=== PATIENT | male | born 1960 | race Caucasian/White ===

== ENCOUNTER 2020-12-08 12:08 | Emergency (ER) | payer BC, SELFPAY ==
[2020-12-08 12:09] VITALS: BP 146/103; PULSE 92; RESP 20; TEMP 36.6; O2SAT 97; BMI 46.4
--- NOTE | 2020-12-08 12:27 | EKG12_ITS ---
Test Reason : CHEST OTHR Blood Pressure : / mmHG Vent. Rate : 077 BPM Atrial Rate : 077 BPM P-R Int : 164 ms QRS Dur : 072 ms QT Int : 376 ms P-R-T Axes : 053 023 054 degrees QTc Int : 425 ms Normal sinus rhythm Nonspecific ST abnormality Abnormal ECG Confirmed by PILAR LOZADA, CAR ([id number]), newspaper photo editor CHAITANYA CARNES ([id number]) on 12/11/2020 9:49:09 AM Referred By: MARLON Confirmed By:AYESHA QUEZADA MD
--- NOTE | 2020-12-08 12:27 | CT_ITS ---
STUDY: CTA CHEST REASON FOR EXAM: Male, 60 years old. PE. Chest pain. Covid positive. RADIATION DOSAGE (If Supplied By Facility): CTDIvol = ( 31.58 ) mGy, DLP = ( 730.71 ) mGycm TECHNIQUE: The examination was performed with the intravenous administration of IV 100mL Isovue-370. Post-processing of the angiographic images was performed, with multiplanar reformation and 3D reconstruction. Individualized dose optimization techniques were used for this CT. COMPARISON: None. FINDINGS: There are multiple bilateral intraluminal filling defects in branches of the right and left upper lobe pulmonary arteries. Smaller luminal filling defects are also seen in the lower lobe pulmonary arterial branches in keeping with pulmonary emboli. Normal thoracic aorta and visualized great vessels. There is no demonstrated aortic dissection. Normal heart and pericardium. Normal mediastinum. Normal hilar regions. Normal visualized trachea and bronchi. The lungs are well expanded. Normal pulmonary parenchyma. Normal pleura. There is evidence of a 5.6 on the right 3 cm lipoma in the right axillary region extending into the rib space in the right upper hemithorax. There are degenerative changes of thoracic spine. Small hiatal hernia. CT/CTA Chest W/WO Contrast IMPRESSION: Multiple bilateral pulmonary emboli as described. Incidental note is made of a 5.9 cm x 3 cm lipoma in the medial aspect of the right axilla with extension into the region of the ribs. Electronically Signed: Donovan Marie MD at 14:15 EDT , Service support ,
[2020-12-08 13:12] LABS: Absolute Lymphocyte Count 2.13 X10^3/uL (0.83-4.51); Absolute Neutrophil Count 3.9 X10^3/uL (2.0-7.7); Basophil# 0.04 X10^3/uL; Basophil% 0.6 % (0-1); Eosinophil# 0.17 X10^3/uL; Eosinophils% 2.5 % (0-5); Hematocrit 52.5 % (40-54); Hemoglobin 18.1 g/dL (13.0-16.5); Lymphocyte # 2.13 X10^3/ul (0.83-4.51); Mean Corp Hgb Conc 34.5 g/dL (32-36); Mean Corpuscular Hgb 30.6 pg (27.0-32.0); Mean Corpuscular Volume 88.8 fL (80-94); Mean Platelet Vol. 11.3 fl (6.2-12.0); Monocyte# 0.65 X10^3/uL; Monocyte% 9.4 % (0-10); NRBC Flagged by Analyzer 0 % (0-5); Neutrophil # 3.87 X10^3/uL (2.7-7.7); Neutrophil % 56.2 % (47-70); Platelet Count 157 K/mm3 (150-450); RBC Distribution Width CV 12.1 % (11.6-14.6); RBC Distribution Width SD 39.8 fl (35.1-43.9); Red Blood Count 5.91 M/mm3 (4.6-6.2); White Blood Count 6.9 K/mm3 (4.4-11.0)
[2020-12-08] MEDS: 0.9% Normal Saline 1,000 ML 150 ML IV (13:17)
[2020-12-08 13:30] LABS: Anion Gap 6 (5-15); BUN 24 mg/dL (7-18); BUN/Creat Ratio 17.1 RATIO (10-20); Calcium,Total 9.4 mg/dL (8.5-10.1); Chloride 105 mmol/L (98-107); EST Glomerular Filtration Rate 55 mL/min (>60); Est Glom Filt Rate - Afr Amer 66 mL/min (>60); Estimated Creatinine Clearance 60.82 ml/min; Glucose 118 mg/dL (74-106); Potassium 3.6 mmol/L (3.5-5.1); Sodium Level 138 mmol/L (136-145)
[2020-12-08 13:41] VITALS: BP 145/101; PULSE 78; RESP 16; O2SAT 96
[2020-12-08 14:40] VITALS: BP 140/91; PULSE 78; RESP 20; O2SAT 97; O2SAT 98
[2020-12-08] MEDS: APIXABAN 5 MG TABLET 10 MG PO (14:59)
[2020-12-08] MEDS: Acetaminophen 500 MG Tablet 1000 MG PO (14:59)
[2020-12-08 15:01] VITALS: BP 130/79; PULSE 87; RESP 18; O2SAT 97
--- NOTE | 2020-12-08 15:22 | ED.VISSUMM ---
- ER Visit Summary Date of Service: 12/08/20 Chief Complaint: Chest pain History of Present Illness: The patient is a [address] Chan Baugh. Patient reports has a cough that began 8 days ago is productive yellow sputum without blood. Reports he tested positive for Covid 1 week ago. He has a left-sided chest pain that began 3 days ago. It is a sharp pain 6 out of 10 at worst and 2 out of 10 currently. Is worsened by breathing and coughing. Is relieved by nothing. Does report that he has been short of breath and diaphoretic at times. Physical Examination: Vitals: Stable. Afebrile. General: Well-nourished and well-developed. Head: Normocephalic atraumatic. Neck: Supple, no lymphadenopathy. No JVD. Nontender. Cardiovascular: Regular rate and rhythm. No murmurs. Respiratory: No respiratory distress. Clear to auscultation bilaterally. Abdominal: Soft, nontender, nondistended, normal bowel sounds. No guarding, rebound, or peritoneal signs. Back: Nontender. Extremities: Nontender, no edema. Skin: Normal color, no rash. Neurologic: Alert and oriented ?3. Cranial nerves II through XII are intact. Normal strength and sensation. Psych: Normal affect. Test Results: EKG is sinus at [address] changes. No old EKG for comparison. Troponin is less than 0.015. Chem-7 shows a BUN of 24, creatinine 1.4, glucose 118. CBC shows a hemoglobin of 18.1. Clinical Impression(s) from Imaging Studies Chest CTA 12/08/20 12:27 IMPRESSION: Multiple bilateral pulmonary emboli as described. Incidental note is made of a 5.9 cm x 3 cm lipoma in the medial aspect of the right axilla with extension into the region of the ribs. Electronically Signed: Donovan Marie MD at 14:15 EDT , Service support , Emergency Department Course and Treatment: Patient was initially written for a dose of morphine and Zofran IV. He refused this and was given Tylenol p.o. He was also given Eliquis p.o. Ambulatory pulse ox is 96% on room air. The patient feels well and would like to go home. His PE severity index is 71 making him class II. Treatment Plan: Patient will be discharged with Eliquis. Instructed to follow-up his primary care physician 1 week if not improving. Return the emerge department for any worsening symptoms. Disposition: To home in improved and stable condition. Impression: 1. Bilateral pulmonary emboli. 2. Covid infection. This note was generated with [employer] dictation software. It may contain incorrect words, spelling, and punctuation that were not noted in review of the chart prior to signing ED Disposition - Plan for ED Patient: Disposition: Home or Assisted Living Instructions: Pulmonary Embolism Prescriptions: Apixaban [Eliquis] 5 mg PO BID #74 tablet Prescription Printed Referrals: Gregorio Medina MD [Primary Care Provider] - 1 Week
[2020-12-08 15:26] VITALS: BP 130/79; PULSE 71; RESP 18; TEMP 36.4; O2SAT 96
[2020-12-08 17:10] LABS: Reflex Lactate? Y
[2020-12-11 11:48] LABS: Pathologist Review Reviewed
== END 2020-12-08 15:29 | disposition home or self-care (01) ==
LOC: ED 12:47
PROVIDERS: Emergency Provider Emergency Medicine; PCP Family Medicine
DX: I26.99 Other pulmonary embolism without acute cor pulmonale (principal); U07.1 COVID-19; I10 Essential (primary) hypertension
CPT/HCPCS: 71275; 80048; 83605; 84484; 85025; 93005; 96360; 96361; 99284; J7030; Q9967; A4216; J2405